=== PATIENT | female | born 1970 | race Caucasian/White ===

== ENCOUNTER 2023-04-07 23:19 | Emergency (ER) | payer SELFPAY ==
[2023-04-08] MEDS ORDERED: Amoxicillin 500 MG Cap PO ONE
[2023-04-08 01:01] LABS: INFLUENZA A NAA NEGATIVE (NEGATIVE); INFLUENZA B NAA NEGATIVE (NEGATIVE); RESPIRATORY SYNCYTIAL VIR NAA NEGATIVE (NEGATIVE)
[2023-04-08 01:05] LABS: CORONAVIRUS COVID-19 NAA POSITIVE (NEGATIVE)
== END 2023-04-08 01:35 | disposition home or self-care (01) ==
LOC: SUPCPDRO 23:19 → KA.ED 23:19
DX: U07.1 COVID-19 (principal)
CPT/HCPCS: 0241U; 99283